=== PATIENT | female | born 1965 | race African-American/Black ===

== ENCOUNTER 2018-05-23 15:04 | Emergency (ER) | payer MEDICAID ==
[~2018-05-23] VITALS: Ht 170.2 cm; Wt 116.6 kg
[2018-05-23 15:08] VITALS: BP 127/84
--- NOTE | 2018-05-23 15:18 | NUR ---
PATIENT AMBULATED TO BED 9
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
[2018-05-23] MEDS ORDERED: NACL 0.9% 1,000 ML IV SCH (15:50)
[2018-05-23] MEDS ORDERED: ONDANSETRON 4 MG/2 ML VIAL IVP ONE (15:50)
[2018-05-23 16:28] LABS: BASOPHILS % (AUTO) 0.6 % (0.0-2.0); EOSINOPHILS # (AUTO) 0.1 K/uL (0-0.4); EOSINOPHILS % (AUTO) 1.5 % (0.0-4.0); HEMATOCRIT 41.3 % (36-48); HEMOGLOBIN 13.2 g/dL (12.0-16.0); LYMPHOCYTES % (AUTO) 45.4 % (20.5-51.1); MEAN CORPUSCULAR HEMOGLOBIN 28 pg (27-31); MEAN CORPUSCULAR HGB CONC 32 g/dL (33-37); MEAN CORPUSCULAR VOLUME 87.7 fL (80-94); MONOCYTES # (AUTO) 0.5 K/uL (0.8-1.0); MONOCYTES % (AUTO) 11.4 % (1.7-9.3); NEUTROPHILS # (AUTO) 1.8 K/uL (1.8-7.7); NEUTROPHILS % (AUTO) 41.1 % (42.2-75.2); PLATELET COUNT (AUTO) 274 K/uL (140-450); RED BLOOD CELL COUNT(AUTO) 4.71 MIL/uL (4.20-5.40); RED CELL DISTRIBUTION WIDTH 14.4 % (11.6-13.7); WHITE BLOOD COUNT (AUTO) 4.4 K/uL (4.8-10.8)
[2018-05-23 16:38] LABS: ANION GAP 15.7 (8-16); CARBON DIOXIDE 25.1 mmol/L (21-32); CREATININE 1.1 mg/dL (0.6-1.3); POTASSIUM 3.8 mmol/L (3.5-5.1)
[2018-05-23 16:44] LABS: ALBUMIN 4.1 g/dL (3.4-5.0); TOTAL BILIRUBIN 0.4 mg/dL (0.0-1.0)
--- NOTE | 2018-05-23 17:00 | NUR ---
ct here to take pt.
[2018-05-23 18:17] LABS: APPEARANCE,URINE CLEAR (CLEAR); BILIRUBIN,URINE NEGATIVE (NEGATIVE); BLOOD, URINE 1+ (NEGATIVE); COLOR,URINE YELLOW (YELLOW); LEUKOCYTE ESTERASE ,URINE NEGATIVE (NEGATIVE); NITRITE, URINE NEGATIVE (NEGATIVE); PH,URINE 5.5 (5.0-9.0); UGLUCOSE NEGATIVE (NEGATIVE)
[2018-05-23 19:26] VITALS: BP 120/79
--- NOTE | 2018-05-23 19:26 | NUR ---
Patient discharged with v/s stable. Written and verbal after care instructions given and explained. Patient alert, oriented and verbalized understanding of instructions. Ambulatory with steady gait. All questions addressed prior to discharge. ID band removed. Patient advised to follow up with PMD. Rx of REGLAN 5MG, PROTONIX 40MG given. Patient educated on indication of medication including possible reaction and side effects. Opportunity to ask questions provided and answered.
[2018-05-23 21:13] LABS: RBC,URINE 0-5 (RARE) /HPF (0-5); WBC,URINE 0-5 (RARE) /HPF (0-5)
== END 2018-05-23 19:26 | disposition home or self-care (01) ==
LOC: MED 15:04
DX: K29.70 Gastritis, unspecified, without bleeding (principal); Z95.1 Presence of aortocoronary bypass graft; Z90.49 Acquired absence of other specified parts of digestive tract; Z85.038 Personal history of other malignant neoplasm of large intestine
CPT/HCPCS: 36415; 71045; 74176; 80053; 81001; 81025; 83690; 83880; 84484; 85025; 85610; 85730; 87086; 96361; 96374; 99285; J2405; J7030; Q0092

== ENCOUNTER 2018-10-04 15:29 | Emergency (ER) | payer MEDICAID ==
[~2018-10-04] VITALS: Ht 170.2 cm; Wt 108.9 kg
[2018-10-04 15:40] VITALS: BP 145/68
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
--- NOTE | 2018-10-04 16:09 | NUR ---
PT TAKEN TO XRAY VIA JESSE
[2018-10-04] MEDS ORDERED: MORPHINE SULFATE 10 MG/ML SYR IM ONE (17:25)
[2018-10-04] MEDS ORDERED: MORPHINE SULFATE 4 MG/ML SYR ONE (17:35)
--- NOTE | 2018-10-04 19:06 | NUR ---
PATIENT DISCHARGED BY DR CHAU. RX OF NAPROSYN GIVEN
[2018-10-04 19:07] VITALS: BP 147/73
== END 2018-10-04 19:07 | disposition home or self-care (01) ==
LOC: MED 15:29
DX: S83.91XA Sprain of unspecified site of right knee, initial encounter (principal); S13.4XXA Sprain of ligaments of cervical spine, initial encounter; S43.402A Unspecified sprain of left shoulder joint, initial encounter; S43.401A Unspecified sprain of right shoulder joint, initial encounter; E11.9 Type 2 diabetes mellitus without complications; I10 Essential (primary) hypertension; Z90.710 Acquired absence of both cervix and uterus; W19.XXXA Unspecified fall, initial encounter; Y93.89 Activity, other specified; Y92.89 Other specified places as the place of occurrence of the external cause; Y99.8 Other external cause status
CPT/HCPCS: 72050; 72110; 73020; 73560; 96372; 99283; J2270

== ENCOUNTER 2018-12-16 17:20 | Inpatient (IN) | payer MEDICAID ==
[~2018-12-16] VITALS: Ht 170.2 cm; Wt 120.2 kg
[2018-12-16 17:26] VITALS: BP 141/88
--- NOTE | 2018-12-16 17:26 | NUR ---
TO BED # 7 AMBULATORY, REPORT GIVEN TO CHRISTINE WELLS
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
--- NOTE | 2018-12-16 18:01 | NUR ---
PT MOVED TO BED 11
[2018-12-16 18:54] LABS: BASOPHILS % (AUTO) 0.2 % (0.0-2.0); EOSINOPHILS # (AUTO) 0.2 K/uL (0-0.4); EOSINOPHILS % (AUTO) 2.4 % (0.0-4.0); HEMATOCRIT 39.3 % (36-48); HEMOGLOBIN 12.7 g/dL (12.0-16.0); LYMPHOCYTES # (AUTO) 2.5 K/uL (2.5-16.5); LYMPHOCYTES % (AUTO) 35.5 % (20.5-51.1); MEAN CORPUSCULAR HEMOGLOBIN 29 pg (27-31); MEAN CORPUSCULAR HGB CONC 32 g/dL (33-37); MEAN CORPUSCULAR VOLUME 89.4 fL (80-94); MONOCYTES # (AUTO) 0.7 K/uL (0.8-1.0); MONOCYTES % (AUTO) 9.8 % (1.7-9.3); NEUTROPHILS # (AUTO) 3.7 K/uL (1.8-7.7); NEUTROPHILS % (AUTO) 52.1 % (42.2-75.2); PLATELET COUNT (AUTO) 310 K/uL (140-450); WHITE BLOOD COUNT (AUTO) 7.1 K/uL (4.8-10.8)
--- NOTE | 2018-12-16 19:00 | NUR ---
PT ON STRETCHER IN SUPINE POSITION, RESPIS E/U, DENIES CP/SOB AT THIS TIME. PT ON FULL MONITOR, BED IN LOW POSITION, NO IDENTIFIED REQUESTS AT THIS TIME.
--- NOTE | 2018-12-16 19:01 | NUR ---
PATIENT STATES 07/21 CP RETURNED AND IS NOW REQUESTING MEDICATION, EDMD AWARE
[2018-12-16 19:08] LABS: ANION GAP 9.1 (8-16); CREATININE 1.1 mg/dL (0.6-1.3); POTASSIUM 4.1 mmol/L (3.5-5.1)
[2018-12-16 19:10] LABS: PROTHROMBIN TIME 8.9 secs (10.8-13.4)
[2018-12-16 19:15] LABS: ALBUMIN 3.7 g/dL (3.4-5.0); TOTAL BILIRUBIN 0.2 mg/dL (0.0-1.0)
[2018-12-16 19:18] LABS: D-DIMER < 100 ng/ml (0-400)
[2018-12-16] MEDS ORDERED: ASPIRIN 81 MG TAB.CHEW PO ONE (20:05)
[2018-12-16] MEDS ORDERED: MORPHINE SULFATE 4 MG/ML SYR IVP ONE (20:05)
[2018-12-16] MEDS: NACL 0.9% 1,000 ML IV SCH ×2 (20:07→22:13)
[2018-12-16] MEDS ORDERED: MORPHINE SULFATE 2 MG/ML SYR IVP PRN (20:10)
[2018-12-16] MEDS ORDERED: DOCUSATE SODIUM 100 MG GELCAP PO PRN (20:10)
[2018-12-16] MEDS ORDERED: ACETAMINOPHEN 325 MG TAB PO PRN (20:10)
[2018-12-16] MEDS ORDERED: ONDANSETRON 4 MG/2 ML VIAL IM/IVP PRN (20:10)
[2018-12-16] MEDS ORDERED: HYDROcodone/APAP 5/325 MG 1 TAB TAB PO PRN (20:10)
[2018-12-16] MEDS ORDERED: DEXTROSE 50% 50 ML SYR IVP PRN (20:15)
[2018-12-16] MEDS ORDERED: INSULIN LISPRO SLIDING SCALE 100 UNITS/ML VIAL SUBQ PRN (20:15)
--- NOTE | 2018-12-16 20:55 | NUR ---
Pt transferred to Tele BED 120A WITH RUSSELL HOSKINS.
--- NOTE | 2018-12-16 20:55 | NUR ---
Patient will be admitted to care of [facility]. Admited to DR. RUBIO. Will go to room 120B. Belongings list completed. Report to MAURO WELLS.
--- NOTE | 2018-12-16 20:58 | NUR ---
Patient's Plan of Care was discussed and reviewed with REAL ESTATE CONSULTANT: ERIN
[2018-12-16 20:59] LABS: AMYLASE 117 U/L (25-115); LIPASE 161 U/L (73-393); MAGNESIUM 2.3 mg/dL (1.8-2.4); PHOSPHORUS 4.1 mg/dL (2.5-4.9); THYROID STIMULATING HORMONE 2.66 uIU/mL (0.34-3.74)
[2018-12-16] MEDS ORDERED: METOPROLOL 25 MG TAB PO SCH (21:00)
[2018-12-16 21:30] VITALS: BP 129/70
--- NOTE | 2018-12-16 21:30 | NUR ---
Admitted from ER TO TELEMETRY UNIT , with chief complaint of CHEST PAIN , 53 y/o ,Female, Cooperative, AWAKE, A/OX4. RESPIRATION EVEN AND UNLABORED. IV SALINE LOCK AT [facility] G oriented to call light, bed, phone,television, bathroom, smoking policy, visiting hours, procedures, ID bracelet on. Belongings list checked. Addendum: 12/17/18 at 0222 by Ifrah Sen LVN ERROR: WRONG ENTRY. PLEASE DISREGARD THIS ADM NOTES.
--- NOTE | 2018-12-16 21:30 | NUR ---
Admitted from ER TO TELEMETRY UNIT, with chief complaint of CHEST PAIN , 53 y/o ,Female, Cooperative, AWAKE, A/OX4, OBESE. RESPIRATION EVEN AND UNLABORED. IV SALINE LOCK AT THE LEFT AC PATENT AND INTACT. CHEST PAIN DESCRIBED DEEP PAIN IN THE LEFT CHEST, UNDER BREAST RADIATING UPWARD TO THE SHOULDERS, RELIEVED BY HER HEART MEDICATION AT HOME, 7/10 IN INTENSITY, ON AND OFF FOR THREE WEEKS NOW. WAS MEDICATED IN ER WITH MORPHINE. HEAD TO TOE ASSESSMENT DONE WITH CHARGE NURSE MAURO, SKIN INTACT. PAIN NOW 2/10, WILL MEDICATE ORDERED. oriented to call light, bed,phone,television, bathroom, smoking policy,visiting hours, procedures, ID bracelet on. Belongings list checked.
[2018-12-16] MEDS: BLOOD GLUCOSE MONITORING 1 DEV DEV FS SCH (22:00)
--- NOTE | 2018-12-16 22:00 | NUR ---
REFUSED SNACK FOR THE NIGHT, OFFERED JUICE AND CRACKERS, ATE 55%.
[2018-12-16] MEDS ORDERED: NITROGLYCERIN 0.4 MG TAB SL PRN (22:10)
[2018-12-16] MEDS ORDERED: PANTOPRAZOLE 40 MG TABEC PO SCH ×2 (23:00)
[2018-12-16] MEDS ORDERED: MIRABULK PO (23:03)
[2018-12-16] MEDS ORDERED: FAMO-90 PO (23:03)
[2018-12-16] MEDS ORDERED: SPIR50TA PO (23:03)
[2018-12-16] MEDS ORDERED: METO25TA PO (23:03)
[2018-12-16] MEDS ORDERED: NITR0.4T2 SL (23:03)
[2018-12-16] MEDS ORDERED: LYR75 PO (23:03)
[2018-12-16] MEDS ORDERED: [UNRECOGNIZED DRUG - CODE] PO (23:03)
[2018-12-16] MEDS ORDERED: FURO20TA8 PO (23:03)
[2018-12-16] MEDS ORDERED: LINA145C PO (23:03)
[2018-12-16] MEDS ORDERED: KEN.025C TP (23:03)
[2018-12-16] MEDS ORDERED: METF500T PO (23:03)
[2018-12-16] MEDS ORDERED: CARI350T PO (23:03)
[2018-12-16] MEDS ORDERED: ACET-787 PO (23:03)
[2018-12-16] MEDS ORDERED: ALPR0.5T20 PO (23:03)
[2018-12-16] MEDS ORDERED: PAX10 PO (23:03)
[2018-12-16] MEDS ORDERED: LISI5TAB18 PO (23:03)
[2018-12-16] MEDS ORDERED: NITROGLYCERIN 0.4 MG TAB SL SCH (23:05)
--- NOTE | 2018-12-16 23:45 | NUR ---
WITH ANXIETY, MEDICATED BY RN WITH ATIVAN 1 MG. IVP ORDERED.
[2018-12-16] MEDS: LORazepam 2 MG/ML VIAL IM/IVP PRN (23:54)
[2018-12-17] VITALS: BP 132/68
--- NOTE | 2018-12-17 00:30 | NUR ---
NO ANXIETY, SLEEPING COMFORTABLY IN BED.
[2018-12-17 01:23] LABS: APPEARANCE,URINE CLEAR (CLEAR); BILIRUBIN,URINE NEGATIVE (NEGATIVE); BLOOD, URINE NEGATIVE (NEGATIVE); COLOR,URINE YELLOW (YELLOW); LEUKOCYTE ESTERASE ,URINE TRACE (NEGATIVE); NITRITE, URINE NEGATIVE (NEGATIVE); UGLUCOSE NEGATIVE (NEGATIVE)
[2018-12-17 01:27] LABS: BARBITURATE, URINE NEG. ng/ml (NEG <=200); BENZODIAZEPINE, URINE POS. ng/mL (NEG <=200); CANNABINOID, URINE NEG. ng/mL (NEG <=50); COCAINE, URINE NEG. ng/mL (NEG <=300); OPIATE, URINE POS. ng/mL (NEG <=2000); PHENCYCLIDINE SCREEN,URINE NEG. ng/mL (NEG <=25)
[2018-12-17 01:32] LABS: RBC,URINE 0-5 (RARE) /HPF (0-5)
[2018-12-17 04:00] VITALS: BP 128/79
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
--- NOTE | 2018-12-17 06:45 | NUR ---
WANTS TO GO HOME, ADVISED TO SPEAK FIRST WITH MD.
--- NOTE | 2018-12-17 07:17 | NUR ---
MEDICATED WITH SOMA ORDERED BY .
--- NOTE | 2018-12-17 07:25 | NUR ---
RESTING IN BED, FEEL A LITTLE BETTER. ENDORSED TO AM NURSE FOR CONTINUITY OF CARE.
[2018-12-17] MEDS ORDERED: CARISOPRODOL 350 MG TAB PO SCH (07:30)
--- NOTE | 2018-12-17 07:42 | NUR ---
RECEIVED BEDSIDE REPORT FROM SURVEYOR INSTRUMENT ASSISTANT RN. PT IN STABLE CONDITION BUT IS ANXIOUS D/T BLOOD DRAW EARLIER. AAOX4. PT C/O 07/[address] RUBIO IS AWARE AND HAS INSTRUCTED TO GIVE PT ATIVAN. PT IS AMBULATORY W/ ASSIST SKIN INTACT. RESPIRATIONS EVEN AND UNLABORED. HEART RHYTHM REGULAR. IV SITE PATENT AND ASYMPTOMATIC, INFUSING IVF PER MD ORDERS. ALL SAFETY PRECAUTIONS IN PLACE, WILL CONTINUE TO MONITOR.
[2018-12-17] MEDS: BLOOD GLUCOSE MONITORING 1 DEV DEV FS SCH ×3 (07:44→16:10)
[2018-12-17 08:00] VITALS: BP 133/58
--- NOTE | 2018-12-17 08:08 | NUR ---
PATIENT HAS BEEN SCREENED AND CATEGORIZED HIGH NUTRITION RISK. PATIENT WILL BE SEEN WITHIN 1-2 DAYS OF ADMISSION. 12/17/18-12/18/[address]
[2018-12-17] MEDS: LORazepam 2 MG/ML VIAL IM/IVP PRN (08:14)
[2018-12-17] MEDS: metFORMIN 500 MG TAB PO SCH ×2 (08:14→16:05)
--- NOTE | 2018-12-17 08:14 | NUR ---
ADMINISTERED ATIVAN FOR ANXIETY PER DR. RUBIO ORDERS.
[2018-12-17 08:15] LABS: ANION GAP 8.7 (8-16); CARBON DIOXIDE 26.5 mmol/L (21-32); CREATININE 0.9 mg/dL (0.6-1.3); POTASSIUM 4.2 mmol/L (3.5-5.1)
[2018-12-17] MEDS ORDERED: DILTIAZEM HCL 180 MG PO SCH (09:00)
[2018-12-17] MEDS ORDERED: PREGABALIN 25 MG CAP PO SCH (09:00)
[2018-12-17] MEDS ORDERED: DILTIAZEM 90 MG CAPER PO SCH (09:00)
[2018-12-17] MEDS ORDERED: PARoxetine 10 MG TAB PO SCH (09:00)
[2018-12-17] MEDS ORDERED: PANTOPRAZOLE 40 MG TABEC PO SCH (09:00)
[2018-12-17] MEDS ORDERED: FUROSEMIDE 20 MG TAB PO SCH (09:00)
[2018-12-17] MEDS ORDERED: POLYETHYLENE GLYCOL 17 GM/PKT PO SCH (09:00)
[2018-12-17] MEDS ORDERED: LISINOPRIL 5 MG TAB PO SCH (09:00)
[2018-12-17] MEDS ORDERED: FUROSEMIDE PO SCH (09:00)
[2018-12-17] MEDS ORDERED: SPIRONOLACTONE 50 MG TAB PO SCH (09:00)
[2018-12-17] MEDS ORDERED: TRIAMCINOLONE 0.025% CRM 15 GM TUBE TP SCH (09:00)
[2018-12-17] MEDS ORDERED: LACTOBACILLUS RHAMNOSUS GG 1 EACH CAP PO SCH (09:00)
[2018-12-17] MEDS ORDERED: ASPIRIN 81 MG TAB.CHEW PO SCH (09:00)
[2018-12-17] MEDS ORDERED: DILTIAZEM 60 MG TAB PO SCH (09:00)
--- NOTE | 2018-12-17 09:14 | NUR ---
PT REPORTS ANXIETY SUBSIDING, ONE HOUR AFTER ATIVAN IVP.
--- NOTE | 2018-12-17 09:51 | NUR ---
CARDIZEM NOT ADMINISTERED. MEDICATION NOT AVAILABLE. PHARMACY AWARE AND ASKED ME TO ASKED PT TO BRING FROM HOME. PT IS AWARE OF PLANS FOR POSSIBLE D/C TODAY AND THUS DOES NOT WANT TO BRING MEDICATION FROM HOME. SHE SAYS SHE WILL HAVE SOMEONE BRING MEDICATION TOMORROW IF SHE IS NOT DISCHARGED TODAY.
--- NOTE | 2018-12-17 09:54 | NUR ---
PHARMACY NOTIFIED THAT PATIENT DOES NOT WANT TO BRING DOSE FOR TODAY. PHARMACIST TO CHECK WITH DOCTOR IF CARDIZEM IS NEEDED FOR TODAY.
[2018-12-17] MEDS ORDERED: DILTIAZEM 120 MG CAPER PO SCH (10:33)
[2018-12-17 11:08] LABS: BASOPHILS # (AUTO) 0.1 K/uL (0.00-0.22); BASOPHILS % (AUTO) 1.7 % (0.0-2.0); EOSINOPHILS # (AUTO) 0.2 K/uL (0-0.4); EOSINOPHILS % (AUTO) 2.3 % (0.0-4.0); HEMOGLOBIN 13.8 g/dL (12.0-16.0); LYMPHOCYTES # (AUTO) 2.1 K/uL (2.5-16.5); LYMPHOCYTES % (AUTO) 31.4 % (20.5-51.1); MEAN CORPUSCULAR HEMOGLOBIN 29 pg (27-31); MEAN CORPUSCULAR HGB CONC 32 g/dL (33-37); MEAN CORPUSCULAR VOLUME 88.9 fL (80-94); MONOCYTES # (AUTO) 0.7 K/uL (0.8-1.0); MONOCYTES % (AUTO) 10.9 % (1.7-9.3); NEUTROPHILS # (AUTO) 3.5 K/uL (1.8-7.7); NEUTROPHILS % (AUTO) 53.7 % (42.2-75.2); PLATELET COUNT (AUTO) 220 K/uL (140-450); RED BLOOD CELL COUNT(AUTO) 4.84 MIL/uL (4.20-5.40); RED CELL DISTRIBUTION WIDTH 14.8 % (11.6-13.7); WHITE BLOOD COUNT (AUTO) 6.6 K/uL (4.8-10.8)
[2018-12-17 11:13] LABS: CHOL/HDL RATIO 2.8 (1-4.5); MAGNESIUM 2.3 mg/dL (1.8-2.4); PHOSPHORUS 4.8 mg/dL (2.5-4.9)
--- NOTE | 2018-12-17 11:39 | NUR ---
BS IS 72 MG/DL. PT IS AWAKE AND ALERT, DRINKING CRANBERRY JUICE.
[2018-12-17 12:00] VITALS: BP 140/69
[2018-12-17] MEDS: NACL 0.9% 1,000 ML IV SCH (12:47)
--- NOTE | 2018-12-17 12:50 | NUR ---
2 RD INITIAL ASSESSMENT COMPLETED PLEASE REFER TO NUTRITION ASSESSMENT UNDER CARE ACTIVITY FOR ESTIMATED NUTRITIONAL NEEDS. 1. RECOMMEND 60 GM CCHO AND CARDIAC DIET 2. RD PROVIDED DIABETES NUTRITION THERAPY 3. RD TO [id number] DAYS, MODERATE RISK DNIO DIETZ, RD
[2018-12-17 16:00] VITALS: BP 125/59
--- NOTE | 2018-12-17 18:35 | NUR ---
ALL D/C PAPERWORK GIVEN TO PATIENT. PT INSTRUCTED TO F/U WITH PCP AND CONTINUE F/U WITH FOOT WORKER. MED RECONCILIATION TEACHING GIVEN. PER PT, FLU VACCINE AND PNEUMOVAX UP TO DATE. ALL PERSONAL BELONGINGS ARE WITH PATIENT. IV SITE REMOVED WITH MINIMAL BLOOD LOSS AND LUMEN INTACT. ID BANDS REMOVED. ALL PERSONAL BELONGINGS WITH PATIENT. PT LEFT WITH FAMILY MEMBERS, TO GO HOME VIA PRIVATE VEHICLE.
[2018-12-17] MEDS ORDERED: METOPROLOL 25 MG TAB PO SCH (21:00)
[2018-12-17] MEDS ORDERED: ATORVASTATIN 20 MG TAB PO SCH (21:00)
[2018-12-18 06:14] LABS: T4 (THYROXINE) 4.8 ug/dL (4.5-12.0)
== END 2018-12-17 18:35 | disposition home or self-care (01) | DRG 203 ==
LOC: MED 17:20 → MTU 20:07
PROVIDERS: ADMIT General Practice; ATTEND General Practice
DX: M94.0 Chondrocostal junction syndrome [Tietze] (principal); E11.65 Type 2 diabetes mellitus with hyperglycemia; I11.9 Hypertensive heart disease without heart failure; N39.0 Urinary tract infection, site not specified; K21.9 Gastro-esophageal reflux disease without esophagitis; E66.01 Morbid (severe) obesity due to excess calories; Z68.41 Body mass index [BMI] 40.0-44.9, adult; Z71.3 Dietary counseling and surveillance; E11.9 Type 2 diabetes mellitus without complications; I25.10 Atherosclerotic heart disease of native coronary artery without angina pectoris; I25.2 Old myocardial infarction; Z90.711 Acquired absence of uterus with remaining cervical stump; Z95.1 Presence of aortocoronary bypass graft; Z82.49 Family history of ischemic heart disease and other diseases of the circulatory system; Z80.0 Family history of malignant neoplasm of digestive organs; Z91.19 Patient's noncompliance with other medical treatment and regimen
CPT/HCPCS: 36415; 71045; 80048; 80053; 80305; 81001; 82150; 82948; 83036; 83690; 83735; 83880; 84100; 84436; 84443; 84484; 85025; 85379; 85610; 85730; 87081; 87086; 93005; 93925; 93970; 96374; 99285; G0482; J0696; J1815; J2060; J2270; J7030; J7060; Q0092

== ENCOUNTER 2019-05-25 10:08 | Emergency (ER) | payer MEDICAID ==
[~2019-05-25] VITALS: Ht 170.2 cm; Wt 120.7 kg
[~2019-05-25 10:08] MED LIST: ACET-787 PO; ALPR0.5T20 PO; CARI350T PO; FAMO-90 PO; FURO20TA8 PO; KEN.025C TP; LINA145C PO; LISI5TAB18 PO; LYR75 PO; METF500T PO; METO25TA PO; MIRABULK PO; NITR0.4T2 SL; PAX10 PO; SPIR50TA PO; [UNRECOGNIZED DRUG - CODE] PO
[2019-05-25 10:12] VITALS: BP 116/74
--- NOTE | 2019-05-25 10:22 | NUR ---
PATIENT AMBULATED TO BED 4.
--- NOTE | 2019-05-25 10:25 | NUR ---
pt amb to restroom with steady gait
--- NOTE | 2019-05-25 10:25 | NUR ---
54 y female bib self c/o intermittent, nonradiating, midsternal sharp/pressure pain unprovoked lasting from minutes to hours x 1 wk. denies injury, no pedal edema noted. adds headache, nausea, dizziness. pupils myles. equal arm licensed professional counselor, facial symmetry. patient states she has an increased amount of stress in her life. vss at this time. pt on patient monitor. bed is down, locked, bed rail x1, ermd to see pt. hx--dm, htn, cad, vertigo, anxiety rx---metformin, meclizine, alparazolam,isosobide, norco, spirolnlatone, dithazem, nitro, lasix, metoprolo, lisinopril, atorvastatin, famotadine
--- NOTE | 2019-05-25 10:35 | NUR ---
DR ROMAN AT BEDSIDE
--- NOTE | 2019-05-25 10:45 | NUR ---
LABS DRAWN BEDSIDE AND HANDED DIRECTLY TO GAS MASK INSPECTOR
--- NOTE | 2019-05-25 10:50 | NUR ---
PT BEING TAKEN TO CT VIA WHEELCHAIR
[2019-05-25 10:59] LABS: BASOPHILS % (AUTO) 0.3 % (0.0-2.0); EOSINOPHILS # (AUTO) 0.1 K/uL (0-0.4); EOSINOPHILS % (AUTO) 1.8 % (0.0-4.0); HEMATOCRIT 35.9 % (36-48); HEMOGLOBIN 11.7 g/dL (12.0-16.0); LYMPHOCYTES # (AUTO) 1.2 K/uL (2.5-16.5); LYMPHOCYTES % (AUTO) 23.6 % (20.5-51.1); MEAN CORPUSCULAR HEMOGLOBIN 30 pg (27-31); MEAN CORPUSCULAR HGB CONC 33 g/dL (33-37); MEAN CORPUSCULAR VOLUME 90.3 fL (80-94); MONOCYTES # (AUTO) 0.5 K/uL (0.8-1.0); MONOCYTES % (AUTO) 10.4 % (1.7-9.3); NEUTROPHILS # (AUTO) 3.3 K/uL (1.8-7.7); NEUTROPHILS % (AUTO) 63.9 % (42.2-75.2); PLATELET COUNT (AUTO) 265 K/uL (140-450); RED BLOOD CELL COUNT(AUTO) 3.98 MIL/uL (4.20-5.40); RED CELL DISTRIBUTION WIDTH 15.8 % (11.6-13.7); WHITE BLOOD COUNT (AUTO) 5.1 K/uL (4.8-10.8)
--- NOTE | 2019-05-25 11:00 | NUR ---
pt returned from ct
[2019-05-25 11:02] LABS: ANION GAP 11.7 (8-16); CARBON DIOXIDE 27.3 mmol/L (21-32); CREATININE 1.3 mg/dL (0.6-1.3)
[2019-05-25 11:08] LABS: ALBUMIN 3.3 g/dL (3.4-5.0); TOTAL BILIRUBIN 0.4 mg/dL (0.0-1.0)
[2019-05-25] MEDS ORDERED: ONDANSETRON 4 MG/2 ML VIAL IVP ONE (11:25)
[2019-05-25] MEDS ORDERED: KETOROLAC 30 MG/ML VIAL IVP ONE (11:25)
--- NOTE | 2019-05-25 11:25 | NUR ---
pt c/o nausea and pain, dr house notified
--- NOTE | 2019-05-25 11:34 | NUR ---
TORADOL AND ZOFRAN ADMINISTERED IVP
[2019-05-25 13:17] VITALS: BP 133/75
--- NOTE | 2019-05-25 13:18 | NUR ---
Patient discharged with v/s stable. Written and verbal after care instructions given and explained. Patient alert, oriented and verbalized understanding of instructions. Ambulatory with steady gait. All questions addressed prior to discharge. ID band removed. Patient advised to follow up with PMD. Rx of zofran, meclizine given. Patient educated on indication of medication including possible reaction and side effects. Opportunity to ask questions provided and answered.
== END 2019-05-25 13:18 | disposition home or self-care (01) ==
LOC: MED 10:08
DX: R51 Headache (principal); R07.89 Other chest pain; R42 Dizziness and giddiness; E11.9 Type 2 diabetes mellitus without complications; I10 Essential (primary) hypertension; Z95.1 Presence of aortocoronary bypass graft; Z98.890 Other specified postprocedural states; Z79.84 Long term (current) use of oral hypoglycemic drugs; Z79.899 Other long term (current) drug therapy
CPT/HCPCS: 36415; 70450; 71045; 80053; 81002; 81025; 82948; 84484; 85025; 93005; 96374; 96375; 99284; J1885; J2405; Q0092

== ENCOUNTER 2024-02-25 11:56 | Inpatient (IN) | payer MEDICAID ==
[~2024-02-25] VITALS: Ht 170.2 cm; Wt 103.0 kg
[~2024-02-25 11:56] MED LIST changes: -ACET-787 PO; +HYDR-5071 PO; +METF-346 PO; -METF500T PO; +[UNRECOGNIZED DRUG - CODE] PO; -[UNRECOGNIZED DRUG - CODE] PO
[2024-02-25 12:29] VITALS: BP 154/94; PULSE 73; RESP 19; TEMP 98.6; O2SAT 100
[2024-02-25 14:11] LABS: EOSINOPHILS # (AUTO) 0.1 K/uL (0-0.4); EOSINOPHILS % (AUTO) 2.5 % (0.0-4.0); HEMATOCRIT 38.1 % (36-48); HEMOGLOBIN 12.8 g/dL (12.0-16.0); LYMPHOCYTES # (AUTO) 1.9 K/uL (2.5-16.5); LYMPHOCYTES % (AUTO) 46.1 % (20.5-51.1); MEAN CORPUSCULAR HEMOGLOBIN 31 pg (27-31); MEAN CORPUSCULAR HGB CONC 34 g/dL (33-37); MEAN CORPUSCULAR VOLUME 90.9 fL (80-94); MONOCYTES # (AUTO) 0.5 K/uL (0.8-1.0); MONOCYTES % (AUTO) 11.4 % (1.7-9.3); NEUTROPHILS # (AUTO) 1.6 K/uL (1.8-7.7); PLATELET COUNT (AUTO) 279 K/uL (140-450); RED BLOOD CELL COUNT(AUTO) 4.19 MIL/uL (4.20-5.40); RED CELL DISTRIBUTION WIDTH 14.3 % (11.6-13.7); WHITE BLOOD COUNT (AUTO) 4.2 K/uL (4.8-10.8)
[2024-02-25 14:33] LABS: ANION GAP 13.2 (8-16); CALCIUM 9.3 mg/dL (8.5-10.1); CARBON DIOXIDE 25.9 mmol/L (21-32); CREATININE 1.1 mg/dL (0.6-1.3); POTASSIUM 4.1 mmol/L (3.5-5.1)
[2024-02-25 14:43] LABS: ALANINE AMINOTRANSFERASE 11 U/L (12-78); ALBUMIN 3.5 g/dL (3.4-5.0); ALKALINE PHOSPHATASE 69 U/L (50-136); ASPARTATE AMINOTRANSFERASE 19 U/L (15-37); BILIRUBIN,DIRECT 0.1 mg/dL (0.0-0.3); LIPASE 105 U/L (16-77); TOTAL BILIRUBIN 0.6 mg/dL (0.0-1.0); TOTAL PROTEIN, SERUM 7.2 g/dL (6.4-8.2)
[2024-02-25] MEDS ORDERED: DULO30EC68 PO (18:36)
[2024-02-25] MEDS: ONDANSETRON 4 MG/2 ML VIAL IVP ONE (18:36)
[2024-02-25] MEDS ORDERED: METO50TA20 PO (18:36)
[2024-02-25] MEDS ORDERED: [UNRECOGNIZED DRUG - CODE] PO (18:36)
[2024-02-25] MEDS ORDERED: RANO10005 PO (18:36)
[2024-02-25] MEDS ORDERED: TRAZ-343 PO (18:36)
[2024-02-25] MEDS ORDERED: CYCL-711 PO (18:36)
[2024-02-25] MEDS ORDERED: LOSA-272 PO (18:36)
[2024-02-25] MEDS ORDERED: FURO-572 PO (18:36)
[2024-02-25] MEDS ORDERED: ACETAMINOPHEN 325 MG TAB PO PRN (18:40)
[2024-02-25] MEDS ORDERED: HYDROcodone/APAP 5/325 MG 1 TAB TAB PO PRN (18:40)
[2024-02-25] MEDS: MORPHINE SULFATE 2 MG/ML SYR IVP PRN (20:56)
[2024-02-25 23:20] VITALS: BP 138/73; PULSE 62; RESP 18; TEMP 98; O2SAT 100
[2024-02-26] VITALS (11 sets, daily range): BP systolic 112–138; BP diastolic 64–73; PULSE 55–75; RESP 18; TEMP 96.8–97.9; O2SAT 94–100
[2024-02-26 06:56] LABS: BASOPHILS % (AUTO) 0.5 % (0.0-2.0); EOSINOPHILS # (AUTO) 0.1 K/uL (0-0.4); EOSINOPHILS % (AUTO) 2.5 % (0.0-4.0); HEMATOCRIT 37.1 % (36-48); HEMOGLOBIN 12.4 g/dL (12.0-16.0); LYMPHOCYTES # (AUTO) 2.3 K/uL (2.5-16.5); LYMPHOCYTES % (AUTO) 55.4 % (20.5-51.1); MEAN CORPUSCULAR HEMOGLOBIN 30 pg (27-31); MEAN CORPUSCULAR HGB CONC 34 g/dL (33-37); MEAN CORPUSCULAR VOLUME 90.6 fL (80-94); MONOCYTES # (AUTO) 0.5 K/uL (0.8-1.0); MONOCYTES % (AUTO) 11.2 % (1.7-9.3); NEUTROPHILS # (AUTO) 1.2 K/uL (1.8-7.7); NEUTROPHILS % (AUTO) 30.4 % (42.2-75.2); PLATELET COUNT (AUTO) 273 K/uL (140-450); RED BLOOD CELL COUNT(AUTO) 4.09 MIL/uL (4.20-5.40); WHITE BLOOD COUNT (AUTO) 4.1 K/uL (4.8-10.8)
[2024-02-26] MEDS ORDERED: INSULIN LISPRO SLIDING SCALE 100 UNITS/ML VIAL SUBQ PRN (07:50)
[2024-02-26] MEDS ORDERED: DEXTROSE 50% 50 ML SYR IVP PRN (07:50)
[2024-02-26] MEDS: ASPIRIN 81 MG TAB.CHEW PO SCH (08:08)
[2024-02-26 08:09] LABS: ANION GAP 16.6 (8-16); CALCIUM 8.9 mg/dL (8.5-10.1); CARBON DIOXIDE 25.1 mmol/L (21-32); POTASSIUM 3.7 mmol/L (3.5-5.1)
[2024-02-26] MEDS: ONDANSETRON 4 MG/2 ML VIAL IVP PRN (10:04)
[2024-02-26] MEDS: BLOOD GLUCOSE MONITORING 1 DEV DEV FS SCH (11:39)
[2024-02-26] MEDS: POLYETHYLENE GLYCOL 17 GM/PKT PO SCH (15:36)
[2024-02-26] MEDS: LUBIPROSTONE 24 MCG CAPSULE PO SCH (16:32)
[2024-02-26] MEDS ORDERED: NITROGLYCERIN 0.4 MG TAB SL PRN (18:00)
[2024-02-26] MEDS: DULoxetine 30 MG CAPDR PO SCH (20:43)
[2024-02-26] MEDS: traZODone 50 MG TAB PO SCH (20:43)
[2024-02-26] MEDS: METOPROLOL 50 MG TAB PO SCH (20:48)
[2024-02-26] MEDS ORDERED: RANOLAZINE 1000 MG PO SCH (21:00)
[2024-02-27] VITALS (9 sets, daily range): BP systolic 98–122; BP diastolic 58–77; PULSE 57–90; RESP 16–18; TEMP 97.6–98; O2SAT 97–100
[2024-02-27 07:15] LABS: BASOPHILS % (AUTO) 0.6 % (0.0-2.0); EOSINOPHILS # (AUTO) 0.1 K/uL (0-0.4); EOSINOPHILS % (AUTO) 3.3 % (0.0-4.0); HEMATOCRIT 39.8 % (36-48); HEMOGLOBIN 13.3 g/dL (12.0-16.0); LYMPHOCYTES # (AUTO) 1.6 K/uL (2.5-16.5); LYMPHOCYTES % (AUTO) 47.2 % (20.5-51.1); MEAN CORPUSCULAR HEMOGLOBIN 30 pg (27-31); MEAN CORPUSCULAR HGB CONC 34 g/dL (33-37); MEAN CORPUSCULAR VOLUME 90.8 fL (80-94); MONOCYTES # (AUTO) 0.5 K/uL (0.8-1.0); MONOCYTES % (AUTO) 14.8 % (1.7-9.3); NEUTROPHILS # (AUTO) 1.2 K/uL (1.8-7.7); NEUTROPHILS % (AUTO) 34.1 % (42.2-75.2); PLATELET COUNT (AUTO) 296 K/uL (140-450); RED BLOOD CELL COUNT(AUTO) 4.38 MIL/uL (4.20-5.40); RED CELL DISTRIBUTION WIDTH 13.8 % (11.6-13.7); WHITE BLOOD COUNT (AUTO) 3.4 K/uL (4.8-10.8)
[2024-02-27 07:50] LABS: ANION GAP 13.2 (8-16); CALCIUM 9.3 mg/dL (8.5-10.1); CARBON DIOXIDE 25.8 mmol/L (21-32); CREATININE 1.1 mg/dL (0.6-1.3)
[2024-02-27] MEDS: CYCLOBENZAPRINE 10 MG TAB PO SCH (08:31)
[2024-02-27] MEDS: PREGABALIN 25 MG CAP PO SCH (08:32)
[2024-02-27] MEDS: metFORMIN 500 MG TAB PO SCH (08:32)
[2024-02-27] MEDS: FUROSEMIDE 20 MG TAB PO SCH (08:33)
[2024-02-27] MEDS: LOSARTAN 50 MG TAB PO SCH (08:33)
[2024-02-27] MEDS ORDERED: NON-FORMULARY ITEM (Isosorbide Mononitrate (Isosorbide Mononitrate ER) 1 TAB) PO SCH (09:00)
[2024-02-27] MEDS: diphenhydrAMINE 50 MG/ML VIAL ONE (10:58)
[2024-02-27] MEDS: fentaNYL citrate 0.05 MG/ML VIAL ONE (10:58)
[2024-02-27] MEDS: MIDAZOLAM 5 MG/5 ML VIAL ONE (10:59)
[2024-02-27] MEDS: MIDAZOLAM 5 MG/5 ML VIAL IV ONE (11:17)
[2024-02-27] MEDS: fentaNYL citrate 0.05 MG/ML VIAL IVP ONE (11:18)
[2024-02-27] MEDS ORDERED: LINA145C PO (15:45)
[2024-02-27] MEDS ORDERED: POLY17PD46 PO (15:45)
== END 2024-02-27 17:13 | disposition home or self-care (01) | DRG 203 ==
LOC: MED 11:56 → MTU 18:48
PROVIDERS: ADMIT Internal Medicine; ATTEND Internal Medicine
PROC: 0DJ08ZZ Inspection of Upper Intestinal Tract, Via Natural or Artificial Opening Endoscopic (ICD-10-PCS; principal; 2024-02-27 11:20)
DX: M94.0 Chondrocostal junction syndrome [Tietze] (principal); E11.40 Type 2 diabetes mellitus with diabetic neuropathy, unspecified; I50.9 Heart failure, unspecified; I11.0 Hypertensive heart disease with heart failure; E66.9 Obesity, unspecified; I25.10 Atherosclerotic heart disease of native coronary artery without angina pectoris; F11.20 Opioid dependence, uncomplicated; E78.5 Hyperlipidemia, unspecified; Z79.899 Other long term (current) drug therapy; Z95.1 Presence of aortocoronary bypass graft; Z90.710 Acquired absence of both cervix and uterus; T40.605A Adverse effect of unspecified narcotics, initial encounter; K59.09 Other constipation; Z95.5 Presence of coronary angioplasty implant and graft
CPT/HCPCS: 36415; 71045; 76705; 80048; 80076; 82948; 83690; 83735; 83880; 84484; 85025; 86677; 87081; 93005; 96374; 99285; J1200; J1815; J2250; J2270; J2405; J3010; J7030; Q0092